=== PATIENT | female | born 1990 | race Caucasian/White ===

== ENCOUNTER → 2017-01-08 | Outpatient (CLI) | payer MEDICAID ==
--- NOTE | 2017-01-08 14:41 | DX ---
Left Wrist, 4 views including a navicular view History: Pain post lifting boxes, trauma, date of injury January 07, 2015 Comparison: None Findings: No acute fracture or dislocation is identified. There is no arthritis or erosive change. A small peripheral focus of sclerosis involving the mid lateral scaphoid bone may indicate a remote he aled fracture. There is a benign bone island in the distal radial epiphysis. There is no soft tissue calcification or ossification. Impression: Nothing acute identified.
== END ==
LOC: BRMIMAGING 13:27
PROVIDERS: ATTEND Family Medicine
DX: S63.502A Unspecified sprain of left wrist, initial encounter (principal); Y93.89 Activity, other specified
CPT/HCPCS: 73110-PO